=== PATIENT | male | born 1965 | race Caucasian/White ===

== ENCOUNTER 2020-04-27 15:29 | Inpatient (IN) | payer OTHER ==
[~2020-04-27] VITALS: Ht 180.3 cm; Wt 76.4 kg
[2020-04-27 15:35] VITALS: BP 124/95
--- NOTE | 2020-04-27 17:22 | NUR ---
PT RESTING IN BED. MAKING SOUNDS OF PAIN BUT DENIES WANTING ANY PAIN MEDICATION. 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 "
--- NOTE | 2020-04-27 18:15 | NUR ---
PT STILL STATES HE DOES NOT WANT PAIN MEDICATION
--- NOTE | 2020-04-27 18:15 | NUR ---
PT STATES HE DOES NOT WANT TO STAY HERE AND NEEDS TO BE HOME BECAUSE "I LIVE ALONE AND MY HOUSE ISN'T ARMED." PT VOICES HE WANTS TO GO HOME AND COME BACK WHEN "HE IS READY."
[2020-04-27 18:58] LABS: BASO # 0.1 10*3/uL (0.0-0.1); BASO % 0.6 % (0.0-1.0); EOS # 0.2 10*3/uL (0.0-0.4); EOS % 1.3 % (1.0-4.0); HEMATOCRIT 47.7 % (42.0-52.0); LYMPH # 2.7 10*3/uL (1.3-4.4); LYMPH % 21.2 % (27.0-41.0); MEAN CORPUSCULAR HGB 32.1 pg (27.0-31.0); MEAN CORPUSCULAR HGB CONC 33.8 g/dl (33.0-37.0); MEAN PLATELET VOLUME 10.3 fl (9.6-12.3); MONO # 0.8 10*3/uL (0.1-1.0); MONO % 6.1 % (3.0-9.0); NEUT # 8.9 10*3/uL (2.3-7.9); NEUT % 70.6 % (47.0-73.0); PLATELET COUNT AUTOMATED 379 10*3/uL (130-400); RED BLOOD COUNT 5.02 10*6/uL (4.50-5.90); RED CELL DISTRI WIDTH 12.7 % (0-14.5); WHITE BLOOD COUNT 12.5 10*3/uL (4.8-10.8)
[2020-04-27 19:08] LABS: ACT PARTIAL THROMBO TIME 28.2 SECONDS (20.0-32.1)
--- NOTE | 2020-04-27 19:12 | NUR ---
PT PROVIDED URINAL
[2020-04-27 19:13] LABS: ALBUMIN 3.8 gm/dl (3.1-4.5); ALKALINE PHOSPHATASE 105 U/L (45-117); BUN 7 mg/dl (7-24); CHLORIDE 106 mmol/L (98-107); CREATININE 1.04 mg/dL (0.70-1.30); POTASSIUM 4.3 mmol/L (3.5-5.1); SGOT/AST 24 IU/L (3-35); SGPT/ALT 28 U/L (12-78); SODIUM 139 mmol/L (136-145); TOTAL PROTEIN 8.5 gm/dL (6.4-8.2)
[2020-04-27 21:15] VITALS: BP 157/83
--- NOTE | 2020-04-27 21:15 | NUR ---
A 55, admitted to 5E, under the services of NILA Lopez DO with a diagnosis of CLOSED LEFT ANKLE FRACTURE. Chief complaint is FALL. Patient arrived via stretcher from ER. Monitor applied. Initial assessment completed. Vital signs taken and recorded. NILA LOPEZ DO notified of admission to the unit. Orders received. See assessment for past medical history, medications and allergies. Patient and/or family oriented to unit. [address] visitation policy reviewed. Clothing/patient valuable form completed. JENNIFER BRUCE
[2020-04-27 21:30] VITALS: BP 126/85
--- NOTE | 2020-04-27 23:42 | NUR ---
PT MEDICATED WITH PRN NORCO FOR C/O ANKLE PAIN RATED A 10/10. WILL MONITOR FOR EFFECTIVENESS.
[2020-04-28] VITALS: BP 156/100
--- NOTE | 2020-04-28 00:40 | NUR ---
PT REPORTS SOME RELIEF OF PAIN NOW RATING IT A 5/10. PRN NORCO EFFECTIVE.
--- NOTE | 2020-04-28 01:42 | NUR ---
PT MEDICATED WITH PRN MORPHINE FOR C/O LEFT ANKLE PAIN RATED A 10/10. WILL MONITOR FOR EFFECTIVENESS.
--- NOTE | 2020-04-28 02:30 | NUR ---
PT ASLEEP AT THIS TIME. PRN MORPHINE APPEARS EFFECTIVE.
--- NOTE | 2020-04-28 04:06 | NUR ---
PT MEDICATED WITH PRN NORCO FOR C/O PAIN RATED A 10/10. WILL MONITOR FOR EFFECTIVENESS.
--- NOTE | 2020-04-28 05:00 | NUR ---
PT REPORTS MINIMAL RELIEF OF PAIN. PRN NORCO INEFFECTIVE.
--- NOTE | 2020-04-28 05:54 | NUR ---
PT MEDICATED WITH PRN MORPHINE FOR C/O LEFT ANKLE PAIN RATED A 8/10. WILL MONITOR FOR EFFECTIVENESS.
--- NOTE | 2020-04-28 06:20 | NUR ---
PT ASLEEP IN BED AT THIS TIME. PRN MORPHINE APPEARS EFFECTIVE.
[2020-04-28 06:25] LABS: BASO # 0.1 10*3/uL (0.0-0.1); BASO % 0.8 % (0.0-1.0); EOS # 0.3 10*3/uL (0.0-0.4); EOS % 3.1 % (1.0-4.0); HEMATOCRIT 41.1 % (42.0-52.0); LYMPH # 2.3 10*3/uL (1.3-4.4); MEAN CELL VOLUME 95.6 fl (80.0-94.0); MEAN CORPUSCULAR HGB 32.1 pg (27.0-31.0); MEAN CORPUSCULAR HGB CONC 33.6 g/dl (33.0-37.0); MEAN PLATELET VOLUME 10.8 fl (9.6-12.3); MONO # 1.1 10*3/uL (0.1-1.0); MONO % 11.3 % (3.0-9.0); NEUT # 6.2 10*3/uL (2.3-7.9); NEUT % 61.5 % (47.0-73.0); PLATELET COUNT AUTOMATED 296 10*3/uL (130-400); RED CELL DISTRI WIDTH 12.9 % (0-14.5); WHITE BLOOD COUNT 10.1 10*3/uL (4.8-10.8)
[2020-04-28 06:52] LABS: BUN 7 mg/dl (7-24); CHLORIDE 106 mmol/L (98-107); CHOLESTEROL 135 mg/dL (<200); CREATININE 0.91 mg/dL (0.70-1.30); HDL CHOLESTEROL 50 mg/dl (40-60); LDL CHOLESTEROL 64 mg/dL (9-159); SODIUM 137 mmol/L (136-145); TRIGLYCERIDES 104 mg/dl (<150); VLDL CHOLESTEROL 21 mg/dL (6-40)
--- NOTE | 2020-04-28 07:43 | NUR ---
PHYSICAL THERAPY Screen received pt s/p fall with L ankle fx, currently [facility] is consulted and pt for possible surgery today, will await further orders from Ortho MD, thank you. Rowena Chow PT
[2020-04-28 08:00] VITALS: BP 158/97
[2020-04-28 08:20] LABS: VITAMIN D, 25-HYDROXY 26.2 ng/mL (30-100)
--- NOTE | 2020-04-28 08:30 | NUR ---
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 Patient states lives at home alone. There are 0 steps in the home. Physician: Dr. Sky Fuentes but has not seen him since 2017 Pharmacy: [facility] in [place] Home health services: none Patient's level of ADLs: MINIMAL ASSIST Patient has working utilities: yes DME: none Follow-up physician's appointment after d/c: will be made by the hospitalist nurse director upon discharge Does patient want to access PORTAL?: no Discharge plan discussed with patient. He lives at home alone. He is currently building his house and states he can live on the first floor. He states he has to use a ladder to get to the second floor. He is normally independent in his ADLs and ambulation. Discussed home health care services and he declines. He states he will just need some crutches to get around with. CM will continue to follow for any discharge planning needs. When medically stable he will be discharged to home. He states he drove himself here and plans to drive himself home as long as he is allowed. JAQUELINE PRABHAKAR
--- NOTE | 2020-04-28 08:44 | NUR ---
PATIENT MEDICATED WITH NORCO PER ORDER FOR COMPLIANT OF ANKLE PAIN R/T FRACTURE. 01/21. PATIENT ALSO REFUSING LIBRIUM, STATES HE "WILL NOT DETOX"
--- NOTE | 2020-04-28 09:45 | NUR ---
PATIENT REPORTS PAIN HAS LESSENED
--- NOTE | 2020-04-28 11:02 | NUR ---
CM in to see patient. Discussed discharge planning. Discussed home health care services and he declines. He states he just needs a pair of crutches to get around. He will have a friend provide transportation when he is discharged today. He states he will also have a friend go up to his second story and bring down some things he will need. He will sleep on his futon on the first floor. 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
[2020-04-28 12:00] VITALS: BP 148/91
--- NOTE | 2020-04-28 15:04 | NUR ---
PHYSICAL THERAPY Physical Therapy evaluation completed on with full evaluation to follow. Recommend physical therapy per plan of care and home with family/friend support HH/out-pt PT per Ortho follow up upon discharge. Thank you for this referral. Rowena Chow PT
--- NOTE | 2020-04-28 15:40 | NUR ---
PATIENT ADMINISTERED MORPHINE FOR C/O 7/10 PAIN TO ANKLE. WILL MONITOR
[2020-04-28] MEDS ORDERED: NORCO 5-325 TA1 EACH PO (15:50)
[2020-04-28] MEDS ORDERED: VITAMIN D350 MC2 PO (15:50)
[2020-04-28] MEDS ORDERED: ASPIRIN CHEWABL81 MG PO (15:52)
[2020-04-28 16:00] VITALS: BP 136/87
--- NOTE | 2020-04-28 16:47 | NUR ---
NORCO 5/325 MG GIVEN FOR C/O PAIN TO LLE,03/23.
--- NOTE | 2020-04-28 18:40 | NUR ---
Discharge instructions reviewed with patient/family. Patient receptive and verbalizes understanding. Follow-up care arranged. Written instructions given to patient/family. TAMIA CONCEPCION
== END 2020-04-28 18:40 | disposition home or self-care (01) | DRG 342 ==
LOC: ED 15:29 → 5E 20:40 → EDHOLD 20:40 → 5E 21:20
PROVIDERS: Internal Medicine; Physician Assistant; ADMIT Internal Medicine; ATTEND Internal Medicine
DX: S82.872A Displaced pilon fracture of left tibia, initial encounter for closed fracture (principal); R73.9 Hyperglycemia, unspecified; D72.829 Elevated white blood cell count, unspecified; R00.0 Tachycardia, unspecified; F17.210 Nicotine dependence, cigarettes, uncomplicated; Z71.6 Tobacco abuse counseling; F12.90 Cannabis use, unspecified, uncomplicated; Z83.3 Family history of diabetes mellitus; F10.129 Alcohol abuse with intoxication, unspecified; Z60.2 Problems related to living alone; W01.0XXA Fall on same level from slipping, tripping and stumbling without subsequent striking against object, initial encounter; Y93.89 Activity, other specified; Y92.89 Other specified places as the place of occurrence of the external cause; Y99.8 Other external cause status; R65.10 Systemic inflammatory response syndrome (SIRS) of non-infectious origin without acute organ dysfunction